=== PATIENT | male | born 1975 | race American Indian/Alaskan Native ===

== ENCOUNTER 2021-04-12 02:46 | Emergency (ER) | payer MEDICARE ==
[~2021-04-12 02:46] MED LIST: NORepinephrine/NS 8 MG-250 ML 8 MG/250 ML INFUS..BTL IV ONE
[2021-04-12] MEDS ORDERED: MINERAL OIL/PETROLATUM, WHITE OPHTH OINT 3.5 GM OU PRN (03:21)
[2021-04-12] MEDS ORDERED: LACTATED RINGERS 1,000 ML IV ONE (03:21)
[2021-04-12] MEDS ORDERED: SODIUM CHLORIDE 0.9% 500 ML IVPB IV PRN (03:21)
[2021-04-12] MEDS ORDERED: fentaNYL 100 MCG/2 ML INJ IV PRN (03:21)
[2021-04-12] MEDS ORDERED: LIP THERAPY VASELINE TP PRN (03:21)
--- NOTE | 2021-04-12 03:24 | Emergency Department Report ---
ED General Adult HPI - General Chief complaint: Cardiac Arrest/CPR Stated complaint: CARDIAC ARREST Time Seen by Provider: 04/12/21 03:18 Source: EMS (Verbal report received from emergency medical services. EMS documentation not available at time of chart dictation ), RN notes reviewed Mode of arrival: Stretcher Limitations: Altered Mental Status, Physical Limitation - History of Present Illness Initial comments: The patient was evaluated in the emergency department for symptoms described in the history of present illness. He/she was evaluated in the context of the global COVID-19 pandemic, which necessitated consideration that the patient might be at risk for infection with the virus that causes COVID-19. Institutional protocols and algorithms that pertain to the evaluation of patients at risk for COVID-19 are in a state of rapid change based on information released by regulatory bodies including the CDC and federal and state organizations. These policies and algorithms were followed during the patient's care in the emergency department. Please note that these policies, procedures and recommendations changed on a rapid basis. The patient is a 46-year-old gentleman who appears to be obese, unknown other past medical history, who was brought to the hospital by emergency medical services as an [id number] cardiac arrest. Last known well time is not known. Patient arrives with I gel supraglottic airway in place, cervical collar in place, and history entirely obtained from EMS. EMS reports that patient is found down on a mattress, for uncertain duration of time, via uncertain mechanism. They believe that family started CPR. EMS arrived on scene, and report that the patient has ventricular tachycardia in the field. They report the patient is shocked multiple times, and receives appropriate ACLS medications. They also report loss of pulses in the field, at which point in time, the patient presented to the emergency room. Upon arrival to this emergency room, the patient initially has a pulse which is very thready, pupils are midpoint, dilated, and do not react to light. He has an eye gel in place. I gel is removed, and the patient is intubated using video laryngoscopy, with cervical spine precautions and immobilization. Shortly thereafter, patient lost pulses for approximately 4 to 5 minutes. Standard CPR and ACLS interventions are initiated, and we are able to regain return of spontaneous circulation. Post return of spontaneous circulation, patient remains comatose, with a GCS of 3T. No additional history is available at this time. Patient intubated, therefore, he is not able to describe the qualitative nature of his symptoms, exacerbating factors relieving factors or aggravating factors. -: unknown - Related Data Allergies Allergy/AdvReac Type Severity Reaction Status Date / Time No Known Allergies Allergy Verified 04/12/21 04:00 ED Review of Systems ROS: Stated complaint: CARDIAC ARREST Other details as noted in HPI Comment: Unobtainable due to pts medical conditions ED Physical Exam - General General appearance: obtunded - Head Head exam: Present: atraumatic, normocephalic - Eye Eye exam: Present: normal appearance, other (Pupils midpoint and do not react to the) - ENT ENT exam: Present: normal exam, normal orophraynx, mucous membranes moist, normal external ear exam - Neck Neck exam: Present: normal inspection. Absent: tenderness, meningismus - Respiratory Respiratory exam: Present: respiratory distress, rhonchi - Cardiovascular Cardiovascular Exam: Present: regular rate, normal rhythm. Absent: bradycardia, tachycardia, irregular rhythm, systolic murmur, diastolic murmur, rubs, gallop - GI/Abdominal GI/Abdominal exam: Present: soft, distended. Absent: tenderness, guarding, rebound, rigid, pulsatile mass - Rectal Rectal exam: Present: normal inspection, normal rectal tone, heme (+) stool. Absent: black stool, bloody stool - exam: Present: normal inspection External exam: Present: normal external exam - Extremities Exam Extremities exam: Present: normal inspection, pedal edema (Lower extremity edema, 2-3+ bilateral lower extremities), other (2+ femoral pulses bilaterally. 1+ radial pulses bilaterally.) - Back Exam Back exam: Present: normal inspection. Absent: tenderness, CVA tenderness (R), CVA tenderness (L), paraspinal tenderness, vertebral tenderness - Neurological Exam Neurological exam: Present: altered (Nonverbal, GCS of 3T) - Skin Skin exam: Present: warm, dry, intact, normal color. Absent: rash ED Course Vital Signs 04/12/21 04/12/21 04/12/21 02:50 03:00 03:11 Temperature 99 F Pulse Rate 100 H 94 H Respiratory 20 22 Rate Blood Pressure 128/68 114/78 Blood Pressure [Right] O2 Sat by Pulse 100 100 100 Oximetry 04/12/21 04/12/21 04/12/21 03:25 03:33 04:09 Temperature 93 F L 93 F L 93 F L Pulse Rate 97 H 98 H 82 Respiratory 22 22 16 Rate Blood Pressure Blood Pressure 128/68 123/69 106/72 [Right] O2 Sat by Pulse 100 100 100 Oximetry 04/12/21 04/12/21 04/12/21 06:14 06:29 06:59 Temperature 93.2 F L 93.2 F L 93 F L Pulse Rate 121 H 135 H 101 H Respiratory 13 23 20 Rate Blood Pressure 103/68 153/75 110/60 Blood Pressure [Right] O2 Sat by Pulse 100 100 98 Oximetry 04/12/21 04/12/21 04/12/21 07:10 07:12 08:00 Temperature 93 F L Pulse Rate 105 H 120 H 95 H Respiratory 20 20 Rate Blood Pressure 100/59 100/60 Blood Pressure 122/69 [Right] O2 Sat by Pulse 98 98 100 Oximetry 04/12/21 08:04 Temperature Pulse Rate Respiratory Rate Blood Pressure Blood Pressure [Right] O2 Sat by Pulse 97 Oximetry - Reevaluation(s) Reevaluation #1: 04/12/21 03:43 Differential diagnosis, including but not limited to: Intracranial injury, cervical spine injury, pulmonary embolism, pneumonia, acute coronary syndrome, COVID-19, urinary tract infection, bacteremia, viremia, obstructive sleep apnea, hypercapnia Assessment and plan: 46-year-old gentleman status post out of hospital cardiac arrest, with numerous loss of pulses, although now with return of spontaneous circulation, with a GCS of 3T. [facility] not have a postarrest hypothermia protocol. Given the time sensitive nature of undifferentiated cardiac arrest, we will obtain emergent CT scan of the brain, cervical spine, and chest to exclude bleed, cervical spine fracture, pulmonary embolism/dissection. His initial EKG is not consistent with a STEMI. Rectal temperature is pending. Urinalysis, chest x-ray, and appropriate laboratory studies pending. We will discussed with critical care promotions executive producer, and cardiology on-call. Presuming no findings are noted that would require transfer for emergent intervention that we cannot provide at this hospital, this patient will be admitted to the ICU for postarrest care and supportive care. Neurologic prognosis is guarded at this time. Reassess after data points. Please note that secondary to patient arriving with a cervical collar, and not being able to clear C-spine, patient required sterile central line placement in the right femoral vein. Contacted cardiology on-call, Dr. Tamiko Rodriguez He has personally reviewed this patient's post resuscitation EKG, and we discussed the patient's history, physical, EKG findings, and clinical impression. Dr. Rodriguez advises that emergent cardiac catheterization is not necessary or indicated at this time, and advises that the cardiology team will follow in consultation. He is in agreement with the current plan of care, and current resuscitative and diagnostic strategy in the emergency room 04/12/21 04:52 CT scan of the brain and cervical spine negative for acute findings. CT scan of the chest shows pulmonary infiltrates, no pulmonary embolism, and nasogastric tube doubled back on itself. Patient arrested while in the emergency room, found to be in pulseless ventricular fibrillation. Patient had a prolonged resuscitation, please see nursing code sheet. While resuscitating this patient, he was found to be in V. fib, and converted to polymorphic V. tach. He received multiple rounds of chest compressions, appropriate medications, including amiodarone, magnesium, calcium chloride, sodium bicarbonate, and epinephrine. He is now in sinus rhythm with PVCs, with return of spontaneous circulation. He remains comatose with a GCS of 3T. Nursing team to remove initially placed nasogastric tube, and they will replace it. Hospital physician, Dr. Valverde to admit to [facility] Reevaluation #2: 04/12/21 05:21 141 lbs Orange Body Weight Equivalent to 64 kg Actual body weight is 143% (1.4x) ideal body weight We will therefore order 1920 cc of fluid to resuscitate patient for systemic inflammatory response syndrome, calculated by ideal body weight. Found to be anemic with thrombocytopenia. Also found to be hypothermic. Brown stool, guaiac positive. Start Protonix. Obtain GI consult. Patient again lost pulses, went into polymorphic V. tach, as well as ventricular fibrillation, shocked twice by myself, standard CPR initiated, now with return of spontaneous circulation, sinus rhythm, with underlying PVCs. Packed red blood cells ordered. Chemistry pending. Suspect that anemia may be con tributing to patient's symptomatology. Reevaluation #3: 04/12/21 06:02 Lactic acidosis reviewed and appreciated. Transaminitis likely secondary to shock liver. Elevated troponin likely type II troponin leak. Sodium of 180 and bicarbonate of 50 appreciated. Suspect artifact. Hypokalemia appreciated. Potassium ordered. I have requested repeat basic metabolic panel. Patient had another episode of V. fib/V. tach arrest. He was successfully resuscitated. Please see nursing code sheet. Multiple requests made of blood bank to release 2 units of type O+. - Consultations Consultation #1: 04/12/21 03:51 Case presented to critical care physician, Dr. Barrios, who is in agreement with the plan of care, will follow consultation, and to facilitate ICU placement. Consultation #2: 04/12/21 05:31 Discussed history, physical, laboratory studies and clinical impression with GI physician on-call, Dr. Naranjo. He is in agreement with the plan of care, and will follow in consultation. - Central Line Placement Right Femoral Consent Obtained: emergent situation (Emergency situation) Time Out Performed: Yes Patient Placed on Monitor/Pulse Ox: Yes MD Prep: mask, gown, gloves Central Line Prep: Chlorhexidine scrub Local Anesthesia Used: Lidocaine 1% Amount of Anesthesia Used (mls): 5 Ultrasound Used for Placement: Yes Central Line Lumen Inserted: triple Reason for Insertion: High Alert Medication Bloods Obtained for Lab: Yes Central Line Position: good blood return, all ports aspirated, flus, sutured in place with 2-0 Dressing Applied: Tegaderm Patient Tolerated Procedure: well Complications: none Additional Comments: Patient prepped and draped in typical maximal sterile fashion. Using ultrasound guidance, right-sided femoral vein is cannulated with an 18-gauge needle, with 3 inch plastic catheter, guidewire, 0.032 x 60 cm, J-tip with a 3 mm radius is then inserted into the guiding catheter, and appropriate luminal placement is confirmed with real-time [id number]-[id number]-pytm ultrasound guidance. A stab incision is made with an 11-gauge blade, and then incision is dilated. The 7 Polish triple-lumen catheter has each of the 3 ports flushed with sterile saline in advance of placement. Then, a 7 Polish triple-lumen catheter is inserted over the guidewire, and sutured to the skin. Real-time ultrasound guidance confirms appropriate luminal placement. Ports are aspirated easily, and flushed easily. Blue Biopatch is then affixed to the skin, and Tegaderm is applied to the skin. This patient tolerated the procedure well, and without obvious complication. Blood loss estimated at less than 50 cc. Femoral vein was selected for central line placement as the patient has a cervical collar in place, therefore, cannot access the internal jugular cici ecture. Patient morbidly obese, with significant adiposity on anterior chest wall, therefore, subclavian cannulation is anticipated to be technically difficult. - Intubation Time Out Performed: No (Emergency situation) Sedative: none (Not required) Laryngoscope: fiberoptic video scope Size: 4 Assist Device Used: fiberoptic device ET Tube Size: 7.5 Tube Secured Depth (cm): 24 Tube Secured Location: lips Tube Placement Confirmation: visualized tube passing t, equal breath sounds bilat, no breath sounds over epi, confirmation by capnometr Patient Tolerated Procedure: well Intubation Complications: none Additional Comments: I gel is removed. Patient receives [id number]-ahhv ventilation. With inline C- spine immobilization, video laryngoscopy is performed, with a S4 curved sadie ngoscope blade, and a 7.5 endotracheal tube is easily inserted into the trachea under direct visualization. Post intubation, there is appropriate end-tidal capnography color change, tube condensation, breath sounds are appreciated bilaterally. - IO Right Tibia Consent Obtained: emergent situation Time Out Performed: No (Emergent situation) IO Instrument Used to Penetrate the Cortex: battery powered IO drill Patient Tolerated Procedure: well Complications: none ED Medical Decision Making - Lab Data Result diagrams: 04/12/21 04:49 04/12/21 06:09 Vital Signs 04/12/21 03:11 Pulse Rate 94 H Blood Pressure 114/78 O2 Sat by Pulse 100 Oximetry - EKG Data -: EKG Interpreted by Ny - EKG Data When compared to previous EKG there are: previous EKG unavailable 04/12/21 03:42 The EKG is interpreted at 03: 21 Sinus rhythm, tachycardia, rate 94 bpm. Normal axis, normal P wave axis, PVC, motion artifact, QTC 4 7 6 ms, borderline high left ventricular voltage. Motion artifact. Not a STEMI. No prior for comparison. 04/12/21 04:54 EKG #2 is interpreted at 04: 48 Sinus rhythm, rate 90 bpm. Normal axis, PVC, WV interval 226 ms, with motion artifact. Abnormal EKG. Not a STEMI - Radiology Data Radiology results: report reviewed, image reviewed CHEST 1 VIEW INDICATION: ETT PLACEMENT. COMPARISON: None. FINDINGS: Support devices: Endotracheal tube tip is approximately 2 cm above the fannie. Esopha gogastric tube tip is at the diaphragmatic hiatus with side-port in the distal esophagus. Heart: Normal. Lungs/Pleura: There are mild right lung opacities. Left lung is clear. No pneumothorax. IMPRESSION: 1. ET tube in good position. 2. Esophagogastric tube tip is at the GE junction. This needs to be advanced. Signer Name: Dionicio Hickey MD Signed: 04/12/2021 2:[address] CERVICAL SPINE WITHOUT CONTRAST INDICATION: Neck pain, trauma. TECHNIQUE: Axial CT images of the spine were obtained. Sagittal and coronal reformatted images were produced. All CT scans at this location are performed using CT dose reduction for ALARA by means of automated exposure control. COMPARISON: None available. FINDINGS: ACUTE FRACTURE(S) OR SUBLUXATION: None. SPINAL DEGENERATIVE CHANGES: There is mild to moderate discogenic degenerative change at C5-6. PARASPINAL SOFT TISSUES: No soft tissue swelling or other acute abnormalities. ADDITIONAL FINDINGS: Esophagogastric tube is doubled back on itself in the oropharynx. IMPRESSION: 1. No acute fracture or subluxation in the spine in neutral position. 2. Esophagogastric tube needs to be repositioned. Signer Name: Dionicio Hickey MD Signed: 04/12/2021 3:16 AM Workstation Name: [employer] CT HEAD WITHOUT CONTRAST INDICATION: ams cardiac arrest. TECHNIQUE: All CT scans at this location are performed using CT dose reduction for ALARA by means of automated exposure control. COMPARISON: None available. FINDINGS: HEMORRHAGE: None. EXTRA-AXIAL SPACES: Normal in size and morphology for the patient's age. VENTRICULAR SYSTEM: Normal in size and morphology for the patient's age. BRAIN PARENCHYMA: No acute findings. MIDLINE SHIFT OR HERNIATION: None. ORBITS: Normal as visualized. SOFT TISSUES OF HEAD: Normal. CALVARIUM: Normal. VISUALIZED PARANASAL SINUSES AND MASTOID AIR CELLS: Clear. ADDITIONAL FINDINGS: None. IMPRESSION: 1. The exam is limited due to patient motion. Accounting for this, no acute intracranial abnormality. Signer Name: Dionicio Hickey MD Signed: 04/12/2021 3:18 AM Workstation Name: [employer] CTA CHEST WITH CONTRAST INDICATION / CLINICAL INFORMATION: ams cardiac arrest. TECHNIQUE: Axial CT images were obtained through the chest after injection of IV contrast. 3 plane MIP and/or 3D reconstructions were produced. All CT scans at this location are performed using CT dose reduction for ALARA by means of automated exposure control. COMPARISON: None available. FINDINGS: PULMONARY EMBOLUS: None. THORACIC AORTA: No significant abnormality. HEART: No significant abnormality. CORONARY ARTERY CALCIFICATION: Absent -- None. MEDIASTINUM / ROSITA: No significant abnormality. PLEURA: No pleural effusion. No pneumothorax. LUNGS: There is diffuse right lung airspace disease. Mild perihilar left lung airspace disease. ADDITIONAL FINDINGS: Endotracheal tube tip is just above the fannie. Nasogastric tube tip is at the GE junction. UPPER ABDOMEN: Left nephrolithiasis is noted. There is contrast throughout the IVC. Constipation is noted. SKELETAL STRUCTURES: No significant osseous abnormality. IMPRESSION: 1. No CT evidence for pulmonary embolism. 2. Bilateral airspace disease, greater on the right. 3. NG tube tip is at the GE junction. Signer Name: Dionicio Hickey MD Signed: 04/12/2021 3:13 AM Workstation Name: [id number] Critical Care Time: Yes Critical care time in (mins) excluding proc time.: 74 Critical care attestation.: If time is entered above; I have spent that time in minutes in the direct care of this critically ill patient, excluding procedure time. ED Disposition Clinical Impression: Cardiac arrest, Ventricular tachycardia, Pulmonary infiltrate, BMI 32.0- 32.9,adult, Anemia, SIRS (systemic inflammatory response syndrome) Disposition: 20 Is pt being admited?: Yes Does the pt Need Aspirin: No Condition: Critical Referrals: MIKA CASTRO MD [Primary Care Provider] - 3-5 Days
--- NOTE | 2021-04-12 03:46 | XRay Report ---
CHEST 1 VIEW INDICATION: ETT PLACEMENT. COMPARISON: None. FINDINGS: Support devices: Endotracheal tube tip is approximately 2 cm above the fannie. Esophagogastric tube t ip is at the diaphragmatic hiatus with side-port in the distal esophagus. Heart: Normal. Lungs/Pleura: There are mild right lung opacities. Left lung is clear. No pneumothorax. IMPRESSION: 1. ET tube in good position. 2. Esophagogastric tube tip is at the GE junction. This needs to be advanced. Signer Name: Dionicio Hickey MD Signed: 04/12/2021 3:42 AM Workstation Name: [id number]
[2021-04-12] MEDS ORDERED: AZITHROMYCIN/NS 500 MG/250 ML 500 MG/250 ML BAG IV ONE (03:50)
[2021-04-12] MEDS ORDERED: dexAMETHasone 4 MG/ML VIAL IV ONE (03:50)
[2021-04-12] MEDS ORDERED: cefTRIAXone/NS 1 GM/50 ML 1 GM/50 ML BAG IV ONE (03:50)
[2021-04-12] MEDS ORDERED: NORepinephrine/NS 8 MG-250 ML 8 MG/250 ML INFUS..BTL IV SCH (04:00)
[2021-04-12] MEDS ORDERED: fentaNYL DRIP Premix 2,000 MCG/100 ML BAG IV SCH (04:00)
--- NOTE | 2021-04-12 04:18 | Cat Scan Report ---
CTA CHEST WITH CONTRAST INDICATION / CLINICAL INFORMATION: ams cardiac arrest. TECHNIQUE: Axial CT images were obtained through the chest after injection of IV contrast. 3 plane DC P and/or 3D reconstructions were produced. All CT scans at this location are performed using CT dose reduction for ALARA by means of automated exposure control. COMPARISON: None available. FINDINGS: PULMONARY EMBOLUS: None. THORACIC AORTA: No significant abnormality. HEART: No significant abnormality. CORONARY ARTERY CALCIFICATION: Absent -- None. MEDIASTINUM / ROSITA: No significant abnormality. PLEURA: No pleural effusion. No pneumothorax. LUNGS: There is diffuse right lung airspace disease. Mild perihilar left lung airspace disease. ADDITIONAL FINDINGS: Endotracheal tube tip is just above the fannie. Nasogastric tube tip is at the G E junction. UPPER ABDOMEN: Left nephrolithiasis is noted. There is contrast throughout the IVC. Constipation is n oted. SKELETAL STRUCTURES: No significant osseous abnormality. IMPRESSION: 1. No CT evidence for pulmonary embolism. 2. Bilateral airspace disease, greater on the right. 3. NG tube tip is at the GE junction. Signer Name: Dionicio Hickey MD Signed: 04/12/2021 4:13 AM Workstation Name: [id number]
--- NOTE | 2021-04-12 04:20 | Cat Scan Report ---
CT CERVICAL SPINE WITHOUT CONTRAST INDICATION: Neck pain, trauma. TECHNIQUE: Axial CT images of the spine were obtained. Sagittal and coronal reformatted images were produced. Al l CT scans at this location are performed using CT dose reduction for ALARA by means of automated exp osure control. COMPARISON: None available. FINDINGS: ACUTE FRACTURE(S) OR SUBLUXATION: None. SPINAL DEGENERATIVE CHANGES: There is mild to moderate discogenic degenerative change at C5-6. PARASPINAL SOFT TISSUES: No soft tissue swelling or other acute abnormalities. ADDITIONAL FINDINGS: Esophagogastric tube is doubled back on itself in the oropharynx. IMPRESSION: 1. No acute fracture or subluxation in the spine in neutral position. 2. Esophagogastric tube needs to be repositioned. Signer Name: Dionicio Hickey MD Signed: 04/12/2021 4:16 AM Workstation Name: [id number]
--- NOTE | 2021-04-12 04:22 | Cat Scan Report ---
CT HEAD WITHOUT CONTRAST INDICATION: ams cardiac arrest. TECHNIQUE: All CT scans at this location are performed using CT dose reduction for ALARA by means of automated e xposure control. COMPARISON: None available. FINDINGS: HEMORRHAGE: None. EXTRA-AXIAL SPACES: Normal in size and morphology for the patient's age. VENTRICULAR SYSTEM: Normal in size and morphology for the patient's age. BRAIN PARENCHYMA: No acute findings. MIDLINE SHIFT OR HERNIATION: None. ORBITS: Normal as visualized. SOFT TISSUES OF HEAD: Normal. CALVARIUM: Normal. VISUALIZED PARANASAL SINUSES AND MASTOID AIR CELLS: Clear. ADDITIONAL FINDINGS: None. IMPRESSION: 1. The exam is limited due to patient motion. Accounting for this, no acute intracranial abnormality . Signer Name: Dionicio Hickey MD Signed: 04/12/2021 4:18 AM Workstation Name: [id number]
[2021-04-12] MEDS ORDERED: MAGNESIUM SULFATE 0 GM/0 ML BAG IV ONE (04:34)
[2021-04-12] MEDS ORDERED: AMIODARONE 150 MG in DEXTROSE 5% IN WATER 97 ML IV ONE (04:42)
[2021-04-12] MEDS ORDERED: ROCURONIUM 50 MG/5 ML INJ IV ONE (04:56)
[2021-04-12] MEDS ORDERED: ETOMIDATE 20 MG/10 ML INJ IV ONE (04:56)
[2021-04-12] MEDS ORDERED: AMIODARONE 900 MG in DEXTROSE 5% IN WATER 482 ML IV SCH (05:00)
[2021-04-12 05:04] LABS: Red Cell Distribution Width 14.2 % (13.2-15.2)
[2021-04-12 05:08] LABS: Basophils # (Auto) 0.1 K/mm3 (0.0-0.1); Eosinophils # (Auto) 0.1 K/mm3 (0.0-0.4); Eosinophils % (Auto) 0.4 % (0.0-4.3); Mean Corpuscular HGB Conc 33 % (32-34); Mean Corpuscular Volume 86 fl (84-94); Monocytes # (Auto) 0.7 K/mm3 (0.0-0.8); Monocytes % (Auto) 3.5 % (0.0-7.3); Red Blood Count 2.11 M/mm3 (3.65-5.03)
[2021-04-12 05:11] LABS: Hematocrit 18.1 % (35.5-45.6); Hemoglobin 5.9 gm/dl (11.8-15.2); Platelet Count 88 K/mm3 (140-440)
[2021-04-12] MEDS ORDERED: SODIUM CHLORIDE 0.9% 500 ML 500 ML IV ONE (05:19)
[2021-04-12] MEDS ORDERED: PANTOPRAZOLE 40 MG INJ IV ONE (05:19)
[2021-04-12 05:28] LABS: Alanine Aminotransferase 124 units/L (7-56); Albumin 1.9 g/dL (3.9-5); Blood Urea Nitrogen 11 mg/dL (9-20); Calcium 7.9 mg/dL (8.4-10.2); Hemolysis Index 33
[2021-04-12 05:31] LABS: BUN/Creatinine Ratio 22
[2021-04-12 05:52] LABS: HDL Cholesterol 30 mg/dL (40-59); LDL Cholesterol,Direct 106 mg/dL (50-130)
--- NOTE | 2021-04-12 05:58 | XRay Report ---
ABDOMEN 1 VIEW(S) INDICATION / CLINICAL INFORMATION: s/p ng tube placement. COMPARISON: None available. FINDINGS: TUBES / LINES: NG tube tip is in the distal esophagus. BOWEL GAS PATTERN: Constipation is noted. FREE AIR / EXTRALUMINAL GAS: None seen. ADDITIONAL FINDINGS: No significant additional findings. IMPRESSION: 1. NG tube tip in the distal esophagus. 2. Constipation. Signer Name: Dionicio Hickey MD Signed: 04/12/2021 5:54 AM Workstation Name: [id number]
[2021-04-12] MEDS ORDERED: PANTOPRAZOLE 80 MG in SODIUM CHLORIDE 0.9% 100 ML IV SCH (06:00)
[2021-04-12] MEDS ORDERED: POTASSIUM CHLORIDE 10 MEQ 10 MEQ/100 ML BAG IV SCH (06:00)
[2021-04-12] MEDS ORDERED: ONDANSETRON 4 MG/2 ML INJ IV PRN (06:08)
[2021-04-12] MEDS ORDERED: ACETAMINOPHEN 325 MG TAB PO PRN (06:08)
[2021-04-12] MEDS ORDERED: HYDROmorphone 1 MG/1 ML INJ IV PRN (06:08)
[2021-04-12] MEDS ORDERED: MORPHINE 2 MG/1 ML INJ IV PRN (06:08)
--- NOTE | 2021-04-12 06:20 | History and Physical Report ---
History of Present Illness Date of examination: 04/12/21 Date of admission: 04/12/21 Chief complaint: Multiple cardiac arrest History of present illness: 46-year-old obese male with unknown past medical history was brought to the emergency room because patient was brought to the hospital by emergency medical services as an [id number] cardiac arrest. Last known well time is not known. Patient arrives with I gel supraglottic airway in place, cervical collar in place, and history entirely obtained from EMS. EMS reports that patient is found down on a mattress, for uncertain duration of time, via uncertain mechanism. They believe that family started CPR. EMS arrived on scene, and report that the patient has ventricular tachycardia in the field. They report the patient is shocked multiple times, and receives appropriate ACLS medications. They also report loss of pulses in the field, at which point in time, the patient presented to the emergency room. Upon arrival to this emergency room, the patient initially has a pulse which is very thready, pupils are midpoint, dilated, and do not react to light. He has an eye gel in place. I gel is removed, and the patient is intubated using video laryngoscopy, with cervical spine precautions and immobilization. Shortly thereafter, patient lost pulses for approximately 4 to 5 minutes. Standard CPR and ACLS interventions are initiated, and we are able to regain return of spontaneous circulation. Post return of spontaneous circulation, patient remains comatose, with a GCS of 3T. No additional history is available at this time. Patient intubated, therefore, he is not able to describe the qualitative nature of his symptoms, exacerbating factors relieving factors or aggravating factors. Patient again lost pulses, went into polymorphic V. tach, as well as ventricular fibrillation, shocked twice by myself, standard CPR initiated, now with return of spontaneous circulation, sinus rhythm, with underlying PVCs. Packed red blood cells ordered. Patient has multiple episode of V. fib/V. tach arrest in the emergency room. Patient was successfully resuscitated. In the ER patient is found to have sodium of 180, potassium 2.8, bicarb 50, BUN 11 creatinine 0.5, glucose 218, lactic acid 6.80, WBC is 18.5, hemoglobin 5.[address] scan of the head shows no acute intracranial abnormality. Chest CTA shows bilateral airspace disease greater on the right. ER doctor discussed the case with critical care, cardiology as well as GI. We were going to admit the patient will consult critical care cardiology and GI for evaluation. Patient coded again. Patient was given shock 300 J. Patient was given CPR patient was put on epi drip as well as lidocaine drip. Case discussed with the legal guardian and explained the poor prognosis of the patient. They want to continue everything and patient to be full code at this time will give her a call in a half an hour. Will sign out to the morning team. Prognosis is poor Medications and Allergies Allergies Allergy/AdvReac Type Severity Reaction Status Date / Time No Known Allergies Allergy Verified 04/12/21 04:00 Active Meds: Active Medications Acetaminophen (Acetaminophen 325 Mg Tab) 650 mg PO Q4H PRN PRN Reason: Pain MILD(1-3)/Fever >100.5/CLOUD Fentanyl (Fentanyl 100 Mcg/2 Ml Inj) 50 mcg IV Q10MIN PRN PRN Reason: ANALGESIA Hydromorphone HCl (Hydromorphone 1 Mg/1 Ml Inj) 0.5 mg IV Q3H PRN PRN Reason: Pain , Severe (7-10) Hydrophilic Ointment (Lip Therapy Vaseline) 1 applic TP Q2HR PRN PRN Reason: Dry Lips Fentanyl Citrate (Fentanyl Drip Premix) 2,000 mcg in 100 mls @ 4.536 mls/hr IV TITR ZARA; Protocol NORepinephrine/NS 8 MG-250 ML (Norepinephrine/Ns 8 Mg-250 Ml (Double Conc)) 8 mg in 250 mls @ 3.75 mls/hr IV TITRATE ZARA; Protocol Pantoprazole Sodium 80 mg/ (Sodium Chloride) 100 mls @ 10 mls/hr IV DIRECT ZARA Potassium Chloride (Kcl 10meq/100ml) 10 meq in 100 mls @ 100 mls/hr IV Q1H ZARA Stop: 04/12/21 09:59 Potassium Chloride/Dextrose/Sod Cl (D5w/0.45% Nacl/Kcl 20 Meq) 20 meq in 1,000 mls @ 125 mls/hr IV DIRECT ZARA Ceftriaxone Sodium (Rocephin/Ns 2 Gm/100 Ml) 2 gm in 100 mls @ 200 mls/hr IV Q24H ZARA; Protocol Azithromycin (Zithromax/Ns) 500 mg in 250 mls @ 250 mls/hr IV Q24H ZARA Morphine Sulfate (Morphine 2 Mg/1 Ml Inj) 2 mg IV Q4H PRN PRN Reason: Pain, Moderate (4-6) Multi-Ingred Cream/Lotion/Oil/Oint (Mineral Oil/Petrolatum, White Ophth Oint 3.5 Gm) 1 applic OU Q4HR PRN PRN Reason: Dry Eye(s) Ondansetron HCl (Ondansetron 4 Mg/2 Ml Inj) 4 mg IV Q8H PRN PRN Reason: Nausea And Vomiting Senna/Docusate Sodium (Sennosides/Docusate Sodium 8.6/50 Mg Tab) 1 tab FEEDTUBE BID ZARA Sodium Chloride (Sodium Chloride 0.9% 500 Ml Ivpb) 5 ml IV DIRECT PRN PRN Reason: ARTERIAL SOUND RECORDIST Sodium Chloride (Sodium Chloride 0.9% 10 Ml Flush Syringe) 10 ml IV BID ZARA Sodium Chloride (Sodium Chloride 0.9% 10 Ml Flush Syringe) 10 ml IV PRN PRN PRN Reason: LINE FLUSH Review of Systems Constitutional: other (Cardiac arrest) Cardiovascular: chest pain, shortness of breath, dyspnea on exertion Respiratory: shortness of breath, dyspnea on exertion Exam - Constitutional Vitals: Temp Pulse Resp BP Pulse Ox 99 F 94 H 20 114/78 100 04/12/21 02:50 04/12/21 03:11 04/12/21 02:50 04/12/21 03:11 04/12/21 03:11 General appearance: Present: severe distress - EENT Eyes: Present: PERRL ENT: hearing intact, clear oral mucosa - Neck Neck: Present: supple, normal ROM - Respiratory Respiratory effort: normal Respiratory: bilateral: diminished - Cardiovascular Heart Sounds: Present: S1 & S2. Absent: rub, click - Extremities Extremities: pulses symmetrical, No edema Peripheral Pulses: within normal limits - Abdominal General gastrointestinal: Present: soft, non-tender, non-distended, normal bowel sounds Male genitourinary: Present: normal - Integumentary Integumentary: Present: clear, warm, dry - Musculoskeletal Musculoskeletal: gait normal, strength equal bilaterally - Psychiatric Psychiatric: other (Patient is lethargic and patient is on vent) - Neurologic Neurologic: CNII-XII intact, moves all extremities, other (Patient is lethargic and patient is on vent) HEART Score - HEART Score Troponin: Troponin T 0.085 ng/mL (0.00-0.029) H 04/12/21 04:49 Results - Labs CBC & Chem 7: 04/12/21 04:49 04/12/21 06:09 Labs: Laboratory Last Values WBC 18.5 K/mm3 (4.5-11.0) H 04/12/21 04:49 RBC 2.11 M/mm3 (3.65-5.03) L 04/12/21 04:49 Hgb 5.9 gm/dl (11.8-15.2) L* 04/12/21 04:49 Hct 18.1 % (35.5-45.6) L* 04/12/21 04:49 MCV 86 fl (84-94) 04/12/21 04:49 MCH 28 pg (28-32) 04/12/21 04:49 MCHC 33 % (32-34) 04/12/21 04:49 RDW 14.2 % (13.2-15.2) 04/12/21 04:49 Plt Count 88 K/mm3 (140-440) L 04/12/21 04:49 [place] % (Auto) 3.5 % (0.0-7.3) 04/12/21 04:49 Eos % (Auto) 0.4 % (0.0-4.3) 04/12/21 04:49 Baso % (Auto) Utilization Specialist 04/12/21 04:49 [place] # (Auto) 0.7 K/mm3 (0.0-0.8) 04/12/21 04:49 Eos # (Auto) 0.1 K/mm3 (0.0-0.4) 04/12/21 04:49 Baso # (Auto) 0.1 K/mm3 (0.0-0.1) 04/12/21 04:49 Seg Neutrophils % 84.3 % (40.0-70.0) H 04/12/21 04:49 Seg Neutrophils # 15.6 K/mm3 (1.8-7.7) H 04/12/21 04:49 Sodium 180 mmol/L (137-145) H* 04/12/21 04:49 Potassium 2.8 mmol/L (3.6-5.0) L* 04/12/21 04:49 Chloride 116.4 mmol/L (98-107) H 04/12/21 04:49 Carbon Dioxide 50 mmol/L (22-30) H* 04/12/21 04:49 Anion Gap 16 mmol/L 04/12/21 04:49 BUN 11 mg/dL (9-20) 04/12/21 04:49 Creatinine 0.5 mg/dL (0.8-1.3) L 04/12/21 04:49 Estimated GFR > 60 ml/min 04/12/21 04:49 BUN/Creatinine Ratio 22 % 04/12/21 04:49 Glucose 218 mg/dL (75-100) H 04/12/21 04:49 Lactic Acid 6.80 mmol/L (0.7-2.0) H* 04/12/21 04:49 Calcium 7.9 mg/dL (8.4-10.2) L 04/12/21 04:49 Total Bilirubin 0.20 mg/dL (0.1-1.2) 04/12/21 04:49 AST 177 units/L (5-40) H 04/12/21 04:49 ALT 124 units/L (7-56) H 04/12/21 04:49 Alkaline Phosphatase 106 units/L (35-129) 04/12/21 04:49 Ammonia 25.0 umol/L (25-60) 04/12/21 04:49 Total Creatine Kinase 97 units/L (55-170) 04/12/21 04:49 Troponin T 0.085 ng/mL (0.00-0.029) H 04/12/21 04:49 Total Protein 3.2 g/dL (6.3-8.2) L 04/12/21 04:49 Albumin 1.9 g/dL (3.9-5) L 04/12/21 04:49 Albumin/Globulin Ratio 1.5 % 04/12/21 04:49 Triglycerides 118 mg/dL (2-149) 04/12/21 04:49 Cholesterol 147 mg/dL (50-199) 04/12/21 04:49 LDL Cholesterol Direct 106 mg/dL (50-130) 04/12/21 04:49 HDL Cholesterol 30 mg/dL (40-59) L 04/12/21 04:49 Cholesterol/HDL Ratio 4.90 % 04/12/21 04:49 TSH 2.450 mlU/mL (0.270-4.200) 04/12/21 04:49 Salicylates < 0.3 mg/dL (2.8-20.0) L 04/12/21 04:49 Acetaminophen 5.0 ug/mL (10.0-30.0) L 04/12/21 04:49 Plasma/Serum Alcohol < 0.01 % (0-0.07) 04/12/21 04:49 Blood Type O POSITIVE 04/12/21 04:50 Antibody Screen Negative 04/12/21 04:50 Crossmatch See Detail 04/12/21 04:50 - Imaging and Cardiology Chest x-ray: report reviewed CT scan - chest: report reviewed CT Scan - head: report reviewed Assessment and Plan VTE prophylaxis?: Mechanical Plan of care discussed with patient/family: Yes - Patient Problems (1) Cardiac arrest Current Visit: Yes Status: Acute Plan to address problem: Admit the patient to the critical care unit. Patient has multiple episode of cardiac arrest. Patient again lost pulses, went into polymorphic V. tach, as well as ventricular fibrillation, shocked twice by myself, standard CPR initiated, now with return of spontaneous circulation, sinus rhythm, with underlying PVCs. Packed red blood cells ordered. Patient has multiple episode of V. fib/V. tach arrest in the emergency room. Patient was successfully resuscitated. Patient is on vent. Patient is on IV fluid. Patient got the amiodarone drip. We will do the serial cardiac enzyme. Echocardiogram. Cardiology evaluation. We also consult critical care evaluation. Prognosis is very poor (2) Hypernatremia Current Visit: Yes Status: Acute Plan to address problem: We will put the patient on D5 half-normal saline at the rate of 125 cc/h. We will recheck BMP in the morning we also consult critical care evaluation (3) Anemia Current Visit: Yes Status: Acute Plan to address problem: Transfused 2 unit of packed red blood cell. Protonix drip. Consult GI. Recheck CBC in the morning (4) Pulmonary infiltrate Current Visit: Yes Status: Acute Plan to address problem: Patient is on vent. DuoNeb by nebulizer every 4 hours. Albuterol via nebulizer every 4 hours as needed. Rocephin 2 g IV daily. Zithromax 500 mg IV daily. Blood culture and sputum culture. Will consult critical care evaluation (5) SIRS (systemic inflammatory response syndrome) Current Visit: Yes Status: Acute Plan to address problem: Patient is on vent. DuoNeb by nebulizer every 4 hours. Albuterol via nebulizer every 4 hours as needed. Rocephin 2 g IV daily. Zithromax 500 mg IV daily. Blood culture and sputum culture. Will consult critical care evaluation (6) Ventricular tachycardia Current Visit: Yes Status: Acute Plan to address problem: Patient already got amiodarone. Patient is on vent. We do the serial cardiac enzyme. Echocardiogram. Cardiology evaluation (7) Hypokalemia Current Visit: Yes Status: Acute Plan to address problem: Patient is on D5 half-normal saline with 20 of potassium at the rate of 125 cc/h. Potassium was supplemented in the ER. Recheck BMP in the morning (8) DVT prophylaxis Current Visit: Yes Status: Acute Plan to address problem: SCD for DVT prophylaxis because of anemia. Patient is on Protonix drip for GI prophylaxis. Patient is a full code
[2021-04-12 06:27] LABS: INR 1.09 (0.87-1.13); Partial Thromboplastin Time 27.7 Sec. (24.2-36.6)
[2021-04-12 06:28] LABS: BUN/Creatinine Ratio 13; Blood Urea Nitrogen 17 mg/dL (9-20); Hemolysis Index 42
[2021-04-12 06:53] LABS: Calcium > 13.0 mg/dL (8.4-10.2)
[2021-04-12] MEDS ORDERED: D5W/0.45% NACL/KCL 20 MEQ 20 MEQ/1,000 ML BAG IV SCH (07:00)
[2021-04-12 07:07] LABS: Monocytes % (Manual) 0 % (0.0-7.3); Total Cells Counted 100
[2021-04-12 07:08] LABS: Band Neutrophils # (Manual) 2.4 K/mm3; Basophils % (Manual) 0 % (0.0-1.8); Eosinophils % (Manual) 0 % (0.0-4.3)
[2021-04-12 07:09] LABS: Anisocytosis 2+; Giant Platelets Rare; Large Platelets Few
[2021-04-12 07:10] LABS: Hypochromasia 3+
[2021-04-12 07:11] LABS: Platelet Estimate Consistent w Auto
--- NOTE | 2021-04-12 07:15 | Event Note ---
Date: 04/12/21 I was called to the room secondary to ventricular fibrillation. Patient had been admitted to the hospital. The hospitalist was not immediately available. Patient was in ventricular fibrillation without a pulse. He immediately underwent defibrillation and continued CPR. Patient was given epinephrine x2 and lidocaine 100 mg. This is despite being on an amiodarone drip and epinephrine drip. Ultimately, there was return of spontaneous circulation with a perfusing pulse. At that time, the hospitalist was at the bedside. Care was left in the hands of the hospitalist. The hospitalist was going to talk to the legal guardian about CODE STATUS. My total time at the bedside was 10 minutes. Total CPR time was 6 minutes. He was defibrillated x2 at 300 J prior to return of spontaneous circulation.
--- NOTE | 2021-04-12 07:42 | Event Note ---
Date: 04/12/21 Called to bedside due to cardiac arrest. Patient was given 1 shock and CPR was resumed prior to arrival. Patient given 1 additional shock, epinephrine and ROSC was achieved after Dr. Howell arrival. Dr. Howell called patient's aunt Maritza Bates at [phone]. [phone] rosc achieved [id number] patient CODE STATUS changed to AND/DNR
[2021-04-12] MEDS ORDERED: POTASSIUM CHLORIDE 20 MEQ 20 MEQ/100 ML BAG IV SCH (08:30)
--- NOTE | 2021-04-12 08:38 | Death Note ---
Note Date of : 04/12/21 Time of : 08:04 Time Pronounced: 08:04 (family notified, condolence offered) - Preliminary Cause of (problem) (1) Cardiac arrest Preliminary cause of (2) Ventricular fibrillation Preliminary cause of (3) Septic shock Preliminary cause of (4) Cardiogenic shock Preliminary cause of
[2021-04-12 08:55] VITALS: BP 100/60
--- NOTE | 2021-04-12 09:34 | Electrocardiograph Report ---
[facility] Test Date: 2021-04-12 Test Time: 03:21:19 Pat Name: ADRIAN GUZMAN Department: Room: A254 1 Gender: M Manufacturing Storeperson: KERRY : 1975 Requested By: LUIS A WATSON Order Number: [id number] Reading MD: Daly Martin Measurements Intervals [place] Rate: 94 P: 61 ME: 170 QRS: 54 QRSD: 77 T: 89 QT: 370 QTc: 476 Interpretive Statements SINUS RHYTHM Ventricular premature complex No previous ECG available for comparison Electronically Signed On 04-12-2021 9:33:31 EST by Daly Martin
[2021-04-12] MEDS ORDERED: SENNOSIDES/DOCUSATE SODIUM 8.6/50 MG TAB FEEDTUBE SCH (10:00)
[2021-04-12] MEDS ORDERED: FAMOTIDINE 20 MG/2 ML INJ IV SCH (10:00)
--- NOTE | 2021-04-12 10:12 | Death Summary ---
Summary - Providers Consults: 04/12/21 03:21 Consult to Physician [CONS] Stat Comment: Consulting Provider: PILI LO Physician Instructions: Reason For Exam: cardiac arrest Consult to Physician [CONS] Stat Comment: Dr. Khoury spoke with Dr. Araya @ [id number] Consulting Provider: ARGELIA YATES Physician Instructions: Reason For Exam: cardiac arrest 04/12/21 03:22 Consult to Dietitian/Nutrition [CONS] Routine Physician Instructions: Reason For Exam: Reason for Consult: Evaluate nutritional intake 04/12/21 06:08 Consult to Physician [CONS] Routine Comment: Consulting Provider: ADAM MARCELINO Physician Instructions: Reason For Exam: anemia - summary Date of : 04/12/21 Significant findings: This is a 46-year-old obese male with no known past medical history who presents the emergency department on 04/12 via EMS for an egn-de-fqqgonhr cardiac arrest. Per EMS report patient was found down on the mattress pressure in duration of time via uncertain mechanism and they believed the patient started CPR and on arrival of the same patient was found to be in V. tach and received ACLS with shocks. Upon arrival to the emergency department patient had lost his pulse via EMS in the field and in the emergency department patient had a very thready pulse with dilated nonreactive pupils and the patient was intubated. Shortly thereafter patient lost pulse for approximately 4-5 minutes and ACLS was initiated with ROSC. Cardiology was consulted in the emergency department and CT brain and cervical spine were negative for acute findings, CT scan of his chest revealed pulmonary infiltrates, no pulmonary embolism. Patient again arrested in the emergency department and was found and converted to polymorphic V. tach and received multiple rounds of ACLS and ROSC was again achieved. In th e emergency department patient was found to be thrombocytopenic, hypothermic, guaiac positive and he was resuscitated with approximately 2 L of normal saline and will start on a Protonix drip with a GI consult. Patient again lost his pulse into polymorphic V. tach as well as V. fib and was again shocked into ROSC. His lab work showed transaminitis, hypernatremia, leukocytosis, severe hyponatremia, metabolic acidosis, lactic acidosis and hyperkalemia. Per ED nurse documentation patient had a total of 6 cardiac arrest with being shocked multiple times. Patient was admitted to the hospitalist service s/p cardiac arrest with consults to GI, CCM, cardiology. Patient again had another cardiac arrest in the morning before 7 AM and patient was made in AND. Patient eventually . Family was informed. Cardiac arrest Ventricular fibrillation Ventricular tachycardia Septic shock Cardiogenic shock Transaminitis Hypernatremia Hypokalemia Anemia Hypoalbuminemia Elevated troponin Hypercalcemia Lactic acidosis
[2021-04-12] MEDS ORDERED: LIDOCAINE/D5W 2 GM/500 ML (0.4%) DRIP IV ONE (16:00)
[2021-04-12] MEDS ORDERED: CALCIUM CHLORIDE 1,000 MG/10 ML SYRINGE IV ONE (16:00)
[2021-04-12] MEDS ORDERED: MAGNESIUM SULFATE 1 GM/2ML (4 MEQ/1ML) INJ ONE (16:00)
[2021-04-12] MEDS ORDERED: LIDOCAINE (2%) 20 MG/1 ML VIAL 20 ML MDV INFILTRATI ONE (16:00)
[2021-04-12] MEDS ORDERED: SODIUM BICARB 8.4% 50 MEQ/50 ML SYRINGE IV ONE (16:00)
[2021-04-12] MEDS ORDERED: EPINEPHrine 1 MG/10 ML SYRINGE ONE (16:00)
[2021-04-12] MEDS ORDERED: AMIODARONE 150 MG/3 ML INJ IV ONE (16:00)
[2021-04-13] MEDS ORDERED: cefTRIAXone/NS 2 GM/100 ML 2 GM/100 ML BAG IV SCH (06:00)
[2021-04-13] MEDS ORDERED: AZITHROMYCIN/NS 500 MG/250 ML 500 MG/250 ML BAG IV SCH (06:00)
--- NOTE | 2021-04-17 13:03 | Electrocardiograph Report ---
[facility] Test Date: 2021-04-12 Test Time: 04:48:39 Pat Name: ADRIAN GUZMAN Department: CCU Room: A254 1 Gender: M Search Strategist: EDITH : 1975 Requested By: OWEN DANIEL Order Number: [id number] Reading MD: Agusto Sullivan Measurements Intervals [place] Rate: 90 P: 56 TN: 226 QRS: 52 QRSD: 71 T: QT: 301 QTc: 382 Interpretive Statements Sinus rhythm with intermittent ventricular ectopy Compared to ECG 04/12/2021 03:21:19 No significant change Electronically Signed On 04-17-2021 13:03:02 EST by Agusto Sullivan
== END 2021-04-12 11:08 ==
LOC: ED 02:46 → UNDOADMIN 06:09 → CC1 06:09 → ED 11:08
DX: I46.9 Cardiac arrest, cause unspecified (principal); R65.10 Systemic inflammatory response syndrome (SIRS) of non-infectious origin without acute organ dysfunction; R91.8 Other nonspecific abnormal finding of lung field; I47.2 Ventricular tachycardia; D64.9 Anemia, unspecified; Z79.899 Other long term (current) drug therapy
CPT/HCPCS: 31500; 36556; 36680; 70450; 71045; 71275; 72125; 74018; 80048; 80053; 80061; 82140; 82550; 84443; 84484; 85025; 85610; 85730; 86850; 86900; 86901; 86920; 87040; 92950; 93005; 93010; 96365; 96366; 96368; 96375; 96376; 99291; C9113; J0171; J0282; J0456; J0696; J1100; J2001; J2354; J3010; J3475; J3480; J3490; J7040; J7060; J7120; P9016; Q9967; 80320; 94002; 96367; G0480